=== PATIENT | male | born 1950 | race Caucasian/White ===

== ENCOUNTER → 2016-09-28 | Outpatient (REF) | payer BC | LOC: M LAB REF 09:09 | PROVIDERS: ATTEND Physician Assistant | DX: J02.9 Acute pharyngitis, unspecified (principal) ==

== ENCOUNTER → 2017-01-06 | Outpatient (REF) ==
--- NOTE | 2017-01-06 09:23 | REP ---
LUMBOSACRAL SPINE: AP and lateral views of the lumbosacral spine performed. There is no compression fracture. There is mild grade 1 retrolisthesis of L2 on L3 similar to the prior study of 09/21/2013. There has been interval posterior fusion from L1 level through S1 as well as fusion at the sacroiliac joints. Posterior rods are seen bilaterally affixed by multiple pedicle screws at each level. A screw fuses the sacroiliac joints inferiorly bilaterally. Disc spacer is seen at L4-5 and L5-S1 levels. There is mild to moderate diffuse spurring. There is moderate disc space narrowing with subchondral sclerosis at L1-2, L2-3 and L3-4. Calcific bridging is seen of the vertebral bodies bilaterally along the lateral aspect of the L2 through L5. Diffuse vascular calcifications are seen of the abdominal aorta and pelvic arterial branches. IMPRESSION: No compression fracture. Posterior fusion from L1 level through S1 as well as at the sacroiliac joints bilaterally. Degenerative changes as above. Signed by Prem Canseco MD 01/06/2017 01:45 P
== END ==
LOC: M SMT 08:09
PROVIDERS: ATTEND Internal Medicine
DX: Z02.71 Encounter for disability determination (principal)

== ENCOUNTER → 2018-04-08 | Outpatient (CLI) | payer BC ==
[2018-04-08 13:09] LABS: BLOOD UREA NITROGEN 16 MG/DL (7-18); CREATININE FOR GFR 0.67 MG/DL (0.70-1.30); GLOMERULAR FILTRATION RATE > 60.0 (>49)
== END ==
LOC: M WUC 09:42
PROVIDERS: ATTEND Surgery
DX: R10.2 Pelvic and perineal pain (principal)

== ENCOUNTER → 2018-04-14 | Outpatient (CLI) | payer MEDICARE ==
[~2018-04-14] MED LIST: GASTROGRAFIN SOLUTION 30ML (Q9963) As Ordered ONE; ISOVUE-370 76% 100ML VIAL (Q9967) As Ordered ONE
--- NOTE | 2018-04-14 10:22 | REP ---
Clinical: Right upper quadrant pain. Technique: Axial contrast enhanced images from the lung bases to the pubic symphysis using oral (per protocol) and 100 ml Isovue 370 intravenous contrast material with precontrast and delayed images of the abdomen as well as coronal and sagittal re-formations. Findings: Lung bases are clear. Visualized heart and pericardium within normal limits. Fatty infiltration to the liver noted without focal hepatic lesion. Spleen, pancreas, gallbladder, bilateral adrenal glands and kidneys are normal. Mild symmetric chronic-appearing perinephric stranding identified. The enteric system is without obstruction or acute inflammatory process. Moderate fecal stasis and diffuse diverticulosis is appreciated without evidence for acute diverticulitis. No normal terminal ileum and appendix identified in the right lower quadrant. Pelvis demonstrates normal bladder. Prostate gland is moderately enlarged measuring approximately 5.1 cm maximal diameter. No ascites. No free air. No adenopathy. Significant atherosclerotic changes to the aorta and vasculature noted without aneurysm. The patient is status post lumbar laminectomy and posterior fixation. Evidence for prior ventral hernia repair. Impression: 1. Diverticulosis without acute diverticulitis. 2. Hepatic steatosis. 3. Atherosclerotic disease to the aorta and branch vessels. 4. Postsurgical changes. 5. No ascites, focal inflammatory changes or adenopathy identified. Electronically Signed by Casey Chun MD 04/14/2018 10:12 A
== END ==
LOC: M RAD 07:57
PROVIDERS: ATTEND Surgery
DX: K57.90 Diverticulosis of intestine, part unspecified, without perforation or abscess without bleeding (principal); K76.0 Fatty (change of) liver, not elsewhere classified; I25.10 Atherosclerotic heart disease of native coronary artery without angina pectoris; R10.11 Right upper quadrant pain; K40.90 Unilateral inguinal hernia, without obstruction or gangrene, not specified as recurrent; M96.1 Postlaminectomy syndrome, not elsewhere classified
CPT/HCPCS: 74178; Q9963; Q9967

== ENCOUNTER → 2018-05-03 | Outpatient (CLI) | payer MEDICARE ==
--- NOTE | 2018-05-04 11:37 | SLEEPCENT ---
DATE OF PROCEDURE: 05/03/2018 ORDERED BY: Linda Farnsworth Nocturnal polysomnography was performed for evaluation of sleep physiology in this patient with history of excessive somnolence and nonrestorative sleep who has comorbidity of acid reflux disease. 7 hours and 48 minutes of data were reviewed. There were 390 minutes of sleep identified. Sleep latency was prolonged at 25 minutes. Rapid eye movement (REM) latency was prolonged at 192 minutes. Sleep architecture initially was quite fragmented and improved substantially after interventions were made. Overall sleep efficiency was 84.3%. The patient's electrocardiogram showed a sinus rhythm with an average heart rate of 88 beats per minute. Rate ranged during the study 81 to 100 beats per minute. Electroencephalogram (EEG) showed normal waveforms for awake and sleep. There were 269 respiratory events identified of 10 seconds in duration or greater for an apnea-hypopnea index of 41.3. Having clearly established the presence of obstructive sleep apnea syndrome early in the night, testing was stopped at approximately midnight for the application of pressure therapy. The patient was fit with a ResMed Quattro full face mask of medium size and 4 cm of water pressure were applied to the circuit and the lights were extinguished. Throughout the remaining course of testing, pressure titration was performed to an optimal pressure of +12, with which the patient slept through REM without respiratory event or oxygen desaturation. Some limb activity noted early in the study did hamzah for the most part late in the tests. Limb movement arousal index was 0.6. IMPRESSION: Severe obstructive sleep apnea syndrome (G47.33). Apnea-hypopnea index 41.3. RECOMMENDATION: Nightly use of pressure therapy at 12 cm of water.
== END ==
LOC: M SLEEP 19:37
PROVIDERS: ATTEND Nurse Practitioner Family
DX: G47.33 Obstructive sleep apnea (adult) (pediatric) (principal)

== ENCOUNTER → 2020-08-18 | Outpatient (CLI) | payer MEDICARE ==
[~2020-08-18] MED LIST changes: +ACET650T61 PO; -GASTROGRAFIN SOLUTION 30ML (Q9963) As Ordered ONE; -ISOVUE-370 76% 100ML VIAL (Q9967) As Ordered ONE; +NAPR220C23 PO; +OMEP1CAP73 PO; +VENL150C43 PO; +VITMTA PO
== END ==
LOC: M LABSMTC 09:59
PROVIDERS: ATTEND Anesthesiology
DX: Z01.812 Encounter for preprocedural laboratory examination (principal); Z11.52 Encounter for screening for COVID-19

== ENCOUNTER 2020-08-23 08:53 | Day surgery (SDC) | payer MEDICARE ==
[~2020-08-23] VITALS: Ht 172.7 cm; Wt 95.2 kg
[~2020-08-23 08:53] MED LIST changes: +NS 1,000 ML IV ONE
[2020-08-23] MEDS ORDERED: propofoL 200 MG/20 ML VIAL As Ordered ONE ×2 (10:16→10:32)
[2020-08-23] MEDS ORDERED: LIDOCAINE 2% MDV 20ML VIAL As Ordered ONE (10:16)
--- NOTE | 2020-08-23 10:41 | ROOR ---
Patient Name: Jeancarlos Perez Procedure Date: 08/23/2020 10:13 AM Date of : 1950 Age: 69 Room: [facility] Gender: Male Note Status: Finalized Procedure: Colonoscopy Indications: Screening for colorectal malignant neoplasm Providers: Karel Sexton Jr, MD Referring MD: CHARLEE MCGOVERN MD Requesting Provider: Medicines: Propofol per Anesthesia Complications: No immediate complications. Procedure: Pre-Anesthesia Assessment: - Prior to the procedure, a History and Physical was performed, and patient medications and allergies were reviewed. The patient is competent. The risks and benefits of the procedure and the sedation options and risks were discussed with the patient. All questions were answered and informed consent was obtained. Patient identification and proposed procedure were verified by the physician and the nurse in the pre-procedure area and in the procedure room. Mental Status Examination: alert and oriented. Airway Examination: normal oropharyngeal airway and neck mobility. Respiratory Examination: clear to auscultation. CV Examination: normal. ASA Grade Assessment: II - A patient with mild systemic disease. After reviewing the risks and benefits, the patient was deemed in satisfactory condition to undergo the procedure. The anesthesia plan was to use moderate sedation / analgesia (conscious sedation). Immediately prior to administration of medications, the patient was re-assessed for adequacy to receive sedatives. The heart rate, respiratory rate, oxygen saturations, blood pressure, adequacy of pulmonary ventilation, and response to care were monitored throughout the procedure. The physical status of the patient was re-assessed after the procedure. The Colonoscope was introduced through the anus and advanced to the cecum, identified by appendiceal orifice and ileocecal valve. The colonoscopy was performed without difficulty. The patient tolerated the procedure well. The quality of the bowel preparation was adequate. Findings: The rectum, recto-sigmoid colon, descending colon, transverse colon, appendiceal orifice and ileocecal valve appeared normal. Multiple small and large-mouthed diverticula were found in the sigmoid colon. A diminutive polyp was found in the cecum. The polyp was removed with a jumbo cold forceps. Resection and retrieval were complete. Impression: - The rectum, recto-sigmoid colon, descending colon, transverse colon, appendiceal orifice and ileocecal valve are normal. - Diverticulosis in the sigmoid colon. - One diminutive polyp in the cecum, removed with a jumbo cold forceps. Resected and retrieved. Recommendation: - Discharge patient to home (ambulatory). - Repeat colonoscopy in 5-10 years for surveillance based on pathology results. - Telephone my office for pathology results in 1 week. Procedure Code(s): --- Professional --- 95619, Colonoscopy, flexible; with biopsy, single or multiple Diagnosis Code(s): --- Professional --- Z12.11, Encounter for screening for malignant neoplasm of colon K63.5, Polyp of colon K57.30, Diverticulosis of large intestine without perforation or abscess without bleeding CPT copyright 2019 [employer]. All rights reserved. The codes documented in this report are preliminary and upon town administrator review may be revised to meet current compliance requirements. Karel Sexton MD Karel Sexton Jr, MD 08/23/2020 10:40:50 AM Electronically signed by Karel Sexton Jr, MD Number of Addenda: 0 Note Initiated On: 08/23/2020 10:13 AM Estimated Blood Loss: Estimated blood loss: none.
[2020-08-23 10:55] VITALS: BP 147/89
== END 2020-08-23 11:11 | disposition home or self-care (01) ==
LOC: M OPP 08:53
PROVIDERS: ATTEND Surgery
DX: Z12.11 Encounter for screening for malignant neoplasm of colon (principal); D12.6 Benign neoplasm of colon, unspecified; K57.30 Diverticulosis of large intestine without perforation or abscess without bleeding; G47.30 Sleep apnea, unspecified; R12 Heartburn; Z79.899 Other long term (current) drug therapy